=== PATIENT | male | born 1990 | race Caucasian/White ===

== ENCOUNTER → 2017-11-28 | Day surgery (SDC) | payer OTHER ==
[~2017-11-28] VITALS: Ht 180.3 cm; Wt 98.9 kg
--- NOTE | 2017-11-28 17:32 | Operative Report ---
Operative/Inv Procedure Report Surgery Date: 11/28/17 Name of Procedure: Varicocelectomy Pre-Operative Diagnosis: Varicocele an ultrasound and discomfort on the patient's left side of the scrotum Post-Operative Diagnosis: Same Estimated Blood Loss: scant Surgeon/Medical Associate: Neyda Sullivan MD Anesthesia: laryngeal mask airway Complications: None Condition: Stable Operative Indication: Left varicocele and left scrotal discomfort Operative/Procedure Note Note: 27-year-old male with a history of left testicular discomfort and pain. He had a scrotal ultrasound which showed a varicocele. The patient was interested in having this addressed as it was causing him discomfort and he didn't want to have future children. He was given the risks benefits and alternatives of the surgery including testicular atrophy and recurrence. He wished to proceed. Consent was signed. Patient was taken to the operating placed on the operating table in supine position. Timeout was performed. IV antibodies were infused. Patient was in the supine position and he was prepped and draped in the standard sterile fashion in the genital region after being clipped with electric clipper. Attention was turned to the patient's left side and the external ring was easily palpable with the finger in in the scrotum up to the external ring. An incision was made just inferior to the external ring. 1% lidocaine with half percent Marcaine was infiltrated into the inguinal cord. The incision was carried down to the cord. The cord was grasped with the [place] clamp. A Samreen drain was placed beneath the cord to keep it within the surgical site. The vas deferens was isolated and identified with a 0 silk suture. The artery was identified with the Doppler ultrasound. The veins were ligated sequence as they were encountered. The Doppler was used periodically to ensure it was not the artery that was being ligated. The veins that were identified were cut after 0 silk was used to tie to portions of it and the middle was cut. The artery was intact as well as the vas deferens. The spermatic cord fascia was closed using running 3-0 Vicryl. This was followed by 3-0 Vicryl interrupted sutures in the subcuticular layer. This was followed by 4-0 Monocryl well in the subcutaneous cutaneous layer. Sponge and needle count were correct the end of the case. Patient tolerated the procedure well. He was transferred to the recovery room in stable condition. Findings: Mildly dilated veins. Vas deferens easily identified. Artery easily identified. Discharge Disposition: PACU
== END ==
LOC: STS 01:43
DX: I86.1 Scrotal varices (principal); N50.819 Testicular pain, unspecified
CPT/HCPCS: J0744; J2250; J3490